=== PATIENT | female | born 1965 ===

== ENCOUNTER 2016-07-17 11:30 | Emergency (ER) | payer OTHER ==
[2016-07-17 11:45] VITALS: O2SAT 100
[2016-07-17] MEDS ORDERED: Sodium Chloride 0.9% 1,000 ML IV ONE (13:14)
--- NOTE | 2016-07-17 13:47 | CT ---
PROCEDURE: CT HEAD WITHOUT CONTRAST. HISTORY: occiptal contusion 04/04, ? SDH/concussion COMPARISON: None available. TECHNIQUE: Axial computed tomography images were obtained through the head/brain without intravenous contrast. Radiation dose: Total exam DLP = 981.84 mGy-cm. This CT exam was performed using one or more of the following dose reduction techniques: Automated exposure control, adjustment of the mA and/or kV according to patient size, and/or use of iterative reconstruction technique. FINDINGS: HEMORRHAGE: No intracranial hemorrhage. BRAIN: No mass effect or edema. The de la paz-white matter differentiation appears intact. Please note that MRI with diffusion imaging is more sensitive in the detection of acute ischemic event. VENTRICLES: No hydrocephalus. CALVARIUM: Unremarkable. PARANASAL SINUSES: Unremarkable as visualized. No significant inflammatory changes. MASTOID AIR CELLS: Minimal opacification of the right greater than left mastoid air cells. OTHER FINDINGS: None. IMPRESSION: No acute intracranial pathology identified. Minimal [id number]-right opacification of the mastoid air cells. Correlate clinically.
--- NOTE | 2016-07-17 13:49 | RAD ---
HISTORY: dizzy/back pain COMPARISON: None available. TECHNIQUE: Chest PA and lateral FINDINGS: Examination limited by habitus. LUNGS: No active pulmonary disease. PLEURA: No significant pleural effusion identified. No pneumothorax apparent. CARDIOVASCULAR: Heart size appears within normal limits. OSSEOUS STRUCTURES: Degenerative changes. Osseous demineralization. VISUALIZED UPPER ABDOMEN: Mild elevation of the right hemidiaphragm. OTHER FINDINGS: None. IMPRESSION: No focal consolidation, significant pleural effusion, or definite pneumothorax identified.
[2016-07-17] MEDS ORDERED: Sodium Chloride 0.9% 1,000 ML ONE (13:58)
[2016-07-17 14:03] LABS: BASO % 0.3 % (0.0-2.0); EOS % 0.8 % (0.0-4.0); HEMATOCRIT 38.5 % (34.0-47.0); LYMPH # 1.8 K/uL (1.0-4.3); LYMPH % 34.1 % (20.0-40.0); MEAN CELL VOLUME 89.6 fL (81.0-99.0); MEAN CORPUSCULAR HEMOGLOBIN 30.3 pg (27.0-31.0); MEAN CORPUSCULAR HGB CONC 33.8 g/dL (33.0-37.0); MEAN PLATELET VOLUME 11.2 fL (7.2-11.7); MONO # 0.4 K/uL (0.0-0.8); MONO % 6.8 % (0.0-10.0); RED CELL DISTRIBUTION WIDTH 12.9 % (11.5-14.5); WHITE BLOOD COUNT 5.4 K/uL (4.8-10.8)
--- NOTE | 2016-07-17 14:04 | C.PDOC ---
History Of Present Illness 51 year old patient presents to the emergency department complaining of chronic back pain and dizziness for the past 1 month. Patient states she slipped and fell March 2016 hitting the back of her head. She occasionally took Motrin with improvement. She recently lost her job and can no longer afford Motrin. She notes she is confused and dizzy at times with mild headaches. She also has trouble concentrating. Patient reports she has achy back pain and "inflammation. " Patient denies fever, chills, chest pain, shortness of breath, nausea, vomiting, abdominal pain, numbness, weakness, or incontinence. Time Seen by Provider: 07/17/16 13:08 Chief Complaint (Nursing): Dizziness/Lightheaded History Per: Patient History/Exam Limitations: no limitations Onset/Duration Of Symptoms: Other (1 month) Current Symptoms Are (Timing): Still Present Severity: Mild Pain Scale Rating Of: 3 Recent travel outside of the [place]: No Past Medical History Reviewed: Historical Data, Nursing Documentation, Vital Signs Vital Signs: Last Vital Signs Temp 98.4 F 07/17/16 11:44 Pulse 69 07/17/16 11:44 Resp 18 07/17/16 11:44 BP 118/78 07/17/16 11:44 Pulse Ox 100 07/17/16 14:26 Family History: States: Unknown Family Hx - Social History Hx Alcohol Use: No Hx Substance Use: No - Immunization History Hx Tetanus Toxoid Vaccination: No Hx Influenza Vaccination: No Review Of Systems Except As Marked, All Systems Reviewed And Found Negative. Constitutional: Negative for: Fever, Chills Cardiovascular: Negative for: Chest Pain Respiratory: Negative for: Shortness of Breath Gastrointestinal: Negative for: Nausea, Vomiting, Abdominal Pain Genitourinary: Negative for: Incontinence Musculoskeletal: Positive for: Back Pain (chronic) Neurological: Positive for: Headache, Dizziness. Negative for: Weakness, Numbness Physical Exam - Physical Exam Appears: Non-toxic, No Acute Distress Skin: Warm, Dry Head: Atraumatic, Normacephalic Eye(s): bilateral: Normal Inspection, PERRL, EOMI Oral Mucosa: Moist Neck: Normal ROM, Supple Chest: Symmetrical Cardiovascular: Rhythm Regular Respiratory: Normal Breath Sounds, No Rales, No Rhonchi, No Wheezing Gastrointestinal/Abdominal: Soft, No Tenderness Back: No CVA Tenderness, No Vertebral Tenderness, Other (vague tenderness to the thoracic back) Extremity: Normal ROM, No Pedal Edema, No Swelling Neurological/Psych: Oriented x3, Normal Speech, Normal Cognition, Normal Motor, Normal Sensation Gait: Steady ED Course And Treatment - Laboratory Results Result Diagrams: 07/17/16 13:54 07/17/16 13:54 Lab Interpretation: Normal ECG: Interpreted By Me ECG Rhythm: Sinus Rhythm ECG Interpretation: Normal Rate From EC O2 Sat by Pulse Oximetry: 100 (room air) Pulse Ox Interpretation: Normal - Radiology CXR: Interpreted by Me CXR Interpretation: Yes: No Acute Disease, Other (normal t-spine and CXR) - Other Rad head CT X-Ray: Read By Radiologist (neg, osteopenia) - CT Scan/US Head CT Other Rad Studies (CT/US): Read By Radiologist (Vanita Alaniz MD), Radiology Report Reviewed CT/US Interpretation: IMPRESSION: No acute intracranial pathology identified. Minimal hvhd-[id number]-[id number]-right opacification of the mastoid air cells. Correlate clinically. Progress Note: Plan: Head CT, EKG, Labs, Chest x-ray, IV fluids, Toradol Reevaluation Time: 14:23 Reassessment Condition: Improved Medical Decision Making Medical Decision Making: ? concussion syndrome from fall with occipital contusion 04/04 normal w/u and head CT opt f/u with Neuro/Clinic chronic thoracic back pain h/o improvement with NSAIDS but now non-compliant. normal t-spine film continue NSAIDS/ice and avoid heat therapies. Disposition Doctor Will See Patient In The: Office Counseled Patient/Family Regarding: Studies Performed, Diagnosis - Disposition Referrals: [facility] [Outside] Vamsi Emerson MD [Staff Provider] - Disposition: HOME/ ROUTINE Disposition Time: 14:25 Condition: GOOD Additional Instructions: para dolor de espalda: Ibuprofeno 400-600 mg cada 6 horas tevin necessario Osteopenia: falta de calcio en makenna huesos come mas comidas con calcio' Mas ejercisio Syndrome de Concussion: Sigue Ibuprofeno 400-600 mg cada 6 horas Pepcid 20 mg en la noche para prevenir irritacion' del estomago debido al ibuprofeno Sigue con el Neurologo- Dr. Emerson- o' en [facility] [place]. Instructions: Muscle Strain (ED), Post Concussion Syndrome (ED) Print Language: MALAYSIAN - Clinical Impression Clinical Impression: Head contusion, Chronic thoracic back pain - Scribe Statement The provider has reviewed the documentation as recorded by the Scribe Joan Snell Provider Attestation: All medical record entries made by the Scribe were at my direction and personally dictated by me. I have reviewed the chart and agree that the record accurately reflects my personal performance of the history, physical exam, medical decision making, and the department course for this patient. I have also personally directed, reviewed, and agree with the discharge instructions and disposition.
[2016-07-17 14:09] LABS: CHLORIDE 99 mmol/L (98-107); POTASSIUM 4.3 mmol/L (3.6-5.2); SODIUM 138 mmol/L (132-148)
[2016-07-17 14:11] LABS: ALB/GLOB RATIO 1.3 (1.0-2.1); ALKALINE PHOSPHATASE 70 U/L (38-126); AST/SGOT 21 U/L (14-36); BILIRUBIN,TOTAL 0.5 mg/dL (0.2-1.3); BLOOD UREA NITROGEN 18 mg/dL (7-17); CARBON DIOXIDE 30 mmol/L (22-30); CHOLESTEROL 198 mg/dL (0-199); GFR AFRICAN-AMERICAN > 60; GLUCOSE,RANDOM 90 mg/dL (65-105); TOTAL PROTEIN 7.5 g/dL (6.3-8.3)
[2016-07-17 14:12] LABS: ALT/SGPT 21 U/L (9-52); CALCIUM 9.2 mg/dl (8.6-10.4)
[2016-07-17 14:14] LABS: RBC URINE 1 /hpf (0-3); URINE BACTERIA RARE (<OCC); URINE BILIRUBIN NEGATIVE (NEGATIVE); URINE BLOOD NEGATIVE (NEGATIVE); URINE COLOR Yellow (YELLOW); URINE GLUCOSE (UA) NORMAL (Normal); URINE KETONE NEGATIVE (NEGATIVE); URINE LEUKOCYTE ESTERASE NEG Leu/uL (Negative); URINE PROTEIN NEGATIVE (NEGATIVE); URINE UROBILINOGEN NORMAL mg/dL (0.2-1.0); WBC URINE 2 /hpf (0-5)
[2016-07-17 14:25] LABS: ALCOHOL SERUM < 10 mg/dl (0-10)
[2016-07-17 15:34] VITALS: BP 120/80; PULSE 65; RESP 20; TEMP 98
== END 2016-07-17 15:33 | disposition home or self-care (01) ==
LOC: C.ER 11:30
DX: S00.93XD Contusion of unspecified part of head, subsequent encounter (principal); W01.0XXD Fall on same level from slipping, tripping and stumbling without subsequent striking against object, subsequent encounter; M54.6 Pain in thoracic spine; G89.29 Other chronic pain
CPT/HCPCS: 70450; 71020; 80053; 80061; 81001; 83036; 83880; 84484; 84703; 85025; 85610; 85730; 96361; 96374; 99285; G0480; J1885; J7040